=== PATIENT | male | born 1945 | race Caucasian/White ===

== ENCOUNTER → 2017-01-29 | Outpatient (CLI) | payer MEDICARE ==
[~2017-01-29] MED LIST: APIX5TAB PO; CHOL20002 PO; HYDR-3240 PO; HYDR25TA6 PO; LISI-170 PO; METF500T4 PO; METO25TA35 PO; METO25TA91 PO; MULT-658 PO; RED600CA2 PO; TAMS-11 PO; WARF10TA6 PO; WARF7.5T6 PO
== END | disposition home or self-care (01) ==
LOC: CVU 12:02
PROVIDERS: ATTEND Internal Medicine Cardiovascular Disease
DX: I87.2 Venous insufficiency (chronic) (peripheral) (principal); S81.802D Unspecified open wound, left lower leg, subsequent encounter; E11.9 Type 2 diabetes mellitus without complications; X58.XXXD Exposure to other specified factors, subsequent encounter
CPT/HCPCS: 93922; 93970

== ENCOUNTER → 2020-04-09 | Outpatient (CLI) | payer MEDICARE ==
[~2020-04-09] MED LIST changes: +ACID1TAB7 PO; +AMOX1TAB64 PO; +DIGO125T85 PO; +DOXY100T23 PO; +LOSA25TA12 PO; +METF500T17 PO; -METF500T4 PO; +WARF10TA43 PO; -WARF10TA6 PO; +WARF7.5T46 PO; -WARF7.5T6 PO
== END | disposition home or self-care (01) ==
LOC: WOUND 10:10
PROVIDERS: ATTEND Nurse Practitioner Family
DX: E11.621 Type 2 diabetes mellitus with foot ulcer (principal); L97.512 Non-pressure chronic ulcer of other part of right foot with fat layer exposed; L97.521 Non-pressure chronic ulcer of other part of left foot limited to breakdown of skin; S81.811A Laceration without foreign body, right lower leg, initial encounter; E11.40 Type 2 diabetes mellitus with diabetic neuropathy, unspecified; L84 Corns and callosities; I48.91 Unspecified atrial fibrillation; I10 Essential (primary) hypertension; Z96.642 Presence of left artificial hip joint; Z95.0 Presence of cardiac pacemaker; X58.XXXA Exposure to other specified factors, initial encounter; Y93.89 Activity, other specified; Y92.89 Other specified places as the place of occurrence of the external cause; Y99.8 Other external cause status
CPT/HCPCS: 11042; G0463

== ENCOUNTER → 2020-04-16 | Outpatient (CLI) | payer MEDICARE | END | disposition home or self-care (01) | LOC: WOUND 08:50 | PROVIDERS: ATTEND Nurse Practitioner Family | DX: E11.621 Type 2 diabetes mellitus with foot ulcer (principal); L97.512 Non-pressure chronic ulcer of other part of right foot with fat layer exposed; L97.521 Non-pressure chronic ulcer of other part of left foot limited to breakdown of skin; S81.811D Laceration without foreign body, right lower leg, subsequent encounter; E11.40 Type 2 diabetes mellitus with diabetic neuropathy, unspecified; L84 Corns and callosities; I48.91 Unspecified atrial fibrillation; I10 Essential (primary) hypertension; Z96.642 Presence of left artificial hip joint; Z95.0 Presence of cardiac pacemaker; X58.XXXD Exposure to other specified factors, subsequent encounter | CPT/HCPCS: 97597 ==

== ENCOUNTER 2020-04-23 09:04 | Outpatient (CLI) | payer MEDICARE | END 2020-04-23 23:59 | disposition home or self-care (01) | LOC: WOUND 09:04 | PROVIDERS: ATTEND Nurse Practitioner Family | DX: E11.621 Type 2 diabetes mellitus with foot ulcer (principal); L97.512 Non-pressure chronic ulcer of other part of right foot with fat layer exposed; L97.521 Non-pressure chronic ulcer of other part of left foot limited to breakdown of skin; S81.811D Laceration without foreign body, right lower leg, subsequent encounter; E11.40 Type 2 diabetes mellitus with diabetic neuropathy, unspecified; L84 Corns and callosities; I48.91 Unspecified atrial fibrillation; I10 Essential (primary) hypertension; Z96.642 Presence of left artificial hip joint; Z95.0 Presence of cardiac pacemaker; X58.XXXD Exposure to other specified factors, subsequent encounter | CPT/HCPCS: 97597 ==

== ENCOUNTER → 2020-04-30 | Outpatient (CLI) | payer MEDICARE | END | disposition home or self-care (01) | LOC: WOUND 09:08 | PROVIDERS: ATTEND Nurse Practitioner Family | DX: E11.621 Type 2 diabetes mellitus with foot ulcer (principal); L97.512 Non-pressure chronic ulcer of other part of right foot with fat layer exposed; L97.521 Non-pressure chronic ulcer of other part of left foot limited to breakdown of skin; E11.40 Type 2 diabetes mellitus with diabetic neuropathy, unspecified; L84 Corns and callosities; I48.91 Unspecified atrial fibrillation; I10 Essential (primary) hypertension; Z96.642 Presence of left artificial hip joint; Z95.0 Presence of cardiac pacemaker | CPT/HCPCS: 97597 ==

== ENCOUNTER → 2020-05-07 | Outpatient (CLI) | payer MEDICARE ==
[~2020-05-07] MED LIST changes: +HYDR-1067 PO; -HYDR-3240 PO
== END | disposition home or self-care (01) ==
LOC: WOUND 09:40
PROVIDERS: ATTEND Nurse Practitioner Family
DX: E11.621 Type 2 diabetes mellitus with foot ulcer (principal); L97.512 Non-pressure chronic ulcer of other part of right foot with fat layer exposed; L97.521 Non-pressure chronic ulcer of other part of left foot limited to breakdown of skin; E11.40 Type 2 diabetes mellitus with diabetic neuropathy, unspecified; L84 Corns and callosities; I48.91 Unspecified atrial fibrillation; I10 Essential (primary) hypertension; Z96.642 Presence of left artificial hip joint; Z95.0 Presence of cardiac pacemaker
CPT/HCPCS: 97597

== ENCOUNTER → 2020-05-14 | Outpatient (CLI) | payer MEDICARE | END | disposition home or self-care (01) | LOC: WOUND 12:52 | PROVIDERS: ATTEND Nurse Practitioner Family | DX: E11.621 Type 2 diabetes mellitus with foot ulcer (principal); L97.512 Non-pressure chronic ulcer of other part of right foot with fat layer exposed; L97.521 Non-pressure chronic ulcer of other part of left foot limited to breakdown of skin; E11.40 Type 2 diabetes mellitus with diabetic neuropathy, unspecified; L84 Corns and callosities; I48.91 Unspecified atrial fibrillation; I10 Essential (primary) hypertension; Z96.642 Presence of left artificial hip joint; Z95.0 Presence of cardiac pacemaker | CPT/HCPCS: 97597 ==

== ENCOUNTER → 2020-05-21 | Outpatient (CLI) | payer MEDICARE | END | disposition home or self-care (01) | LOC: WOUND 09:58 | PROVIDERS: ATTEND Nurse Practitioner Family | DX: E11.621 Type 2 diabetes mellitus with foot ulcer (principal); L97.512 Non-pressure chronic ulcer of other part of right foot with fat layer exposed; L97.521 Non-pressure chronic ulcer of other part of left foot limited to breakdown of skin; E11.40 Type 2 diabetes mellitus with diabetic neuropathy, unspecified; L84 Corns and callosities; I48.91 Unspecified atrial fibrillation; I10 Essential (primary) hypertension; Z96.642 Presence of left artificial hip joint; Z95.0 Presence of cardiac pacemaker | CPT/HCPCS: 11042 ==

== ENCOUNTER → 2020-06-11 | Outpatient (CLI) | payer MEDICARE | END | disposition home or self-care (01) | LOC: WOUND 09:21 | PROVIDERS: ATTEND Nurse Practitioner Family | DX: E11.621 Type 2 diabetes mellitus with foot ulcer (principal); L97.511 Non-pressure chronic ulcer of other part of right foot limited to breakdown of skin; L97.521 Non-pressure chronic ulcer of other part of left foot limited to breakdown of skin; E11.40 Type 2 diabetes mellitus with diabetic neuropathy, unspecified; L84 Corns and callosities; I48.91 Unspecified atrial fibrillation; I10 Essential (primary) hypertension; Z96.642 Presence of left artificial hip joint; Z95.0 Presence of cardiac pacemaker | CPT/HCPCS: 97597 ==

== ENCOUNTER → 2020-06-13 | Outpatient (CLI) | payer MEDICARE | END | disposition home or self-care (01) | LOC: WOUND 11:10 | PROVIDERS: ATTEND Podiatrist Foot & Ankle Surgery | DX: E11.621 Type 2 diabetes mellitus with foot ulcer (principal); L97.512 Non-pressure chronic ulcer of other part of right foot with fat layer exposed; L97.521 Non-pressure chronic ulcer of other part of left foot limited to breakdown of skin; E11.40 Type 2 diabetes mellitus with diabetic neuropathy, unspecified; L84 Corns and callosities; I48.91 Unspecified atrial fibrillation; I10 Essential (primary) hypertension; Z96.642 Presence of left artificial hip joint; Z95.0 Presence of cardiac pacemaker | CPT/HCPCS: 29445 ==

== ENCOUNTER 2020-06-18 13:03 | Outpatient (CLI) | payer MEDICARE | END 2020-06-18 23:59 | disposition home or self-care (01) | LOC: WOUND 13:03 | PROVIDERS: ATTEND Nurse Practitioner Family | DX: E11.621 Type 2 diabetes mellitus with foot ulcer (principal); L97.512 Non-pressure chronic ulcer of other part of right foot with fat layer exposed; L97.521 Non-pressure chronic ulcer of other part of left foot limited to breakdown of skin; E11.40 Type 2 diabetes mellitus with diabetic neuropathy, unspecified; L84 Corns and callosities; I48.91 Unspecified atrial fibrillation; I10 Essential (primary) hypertension; Z96.642 Presence of left artificial hip joint; Z95.0 Presence of cardiac pacemaker | CPT/HCPCS: 97597 ==

== ENCOUNTER → 2020-06-25 | Outpatient (CLI) | payer MEDICARE | END | disposition home or self-care (01) | LOC: WOUND 13:27 | PROVIDERS: ATTEND Nurse Practitioner Family | DX: E11.621 Type 2 diabetes mellitus with foot ulcer (principal); L97.521 Non-pressure chronic ulcer of other part of left foot limited to breakdown of skin; E11.40 Type 2 diabetes mellitus with diabetic neuropathy, unspecified; L84 Corns and callosities; I48.91 Unspecified atrial fibrillation; I10 Essential (primary) hypertension; Z79.84 Long term (current) use of oral hypoglycemic drugs; Z79.899 Other long term (current) drug therapy; Z95.0 Presence of cardiac pacemaker; Z96.642 Presence of left artificial hip joint | CPT/HCPCS: 97597 ==

== ENCOUNTER → 2020-07-02 | Outpatient (CLI) | payer MEDICARE | END | disposition home or self-care (01) | LOC: WOUND 09:13 | PROVIDERS: ATTEND Nurse Practitioner Family | DX: E11.621 Type 2 diabetes mellitus with foot ulcer (principal); L97.511 Non-pressure chronic ulcer of other part of right foot limited to breakdown of skin; E11.40 Type 2 diabetes mellitus with diabetic neuropathy, unspecified; I48.91 Unspecified atrial fibrillation; L84 Corns and callosities; I10 Essential (primary) hypertension; Z79.84 Long term (current) use of oral hypoglycemic drugs; Z79.899 Other long term (current) drug therapy; Z95.0 Presence of cardiac pacemaker; Z96.642 Presence of left artificial hip joint | CPT/HCPCS: 97597 ==

== ENCOUNTER → 2020-07-09 | Outpatient (CLI) | payer MEDICARE | END | disposition home or self-care (01) | LOC: WOUND 09:19 | PROVIDERS: ATTEND Nurse Practitioner Family | DX: E11.621 Type 2 diabetes mellitus with foot ulcer (principal); L97.511 Non-pressure chronic ulcer of other part of right foot limited to breakdown of skin; E11.40 Type 2 diabetes mellitus with diabetic neuropathy, unspecified; I48.91 Unspecified atrial fibrillation; L84 Corns and callosities; I10 Essential (primary) hypertension; Z79.84 Long term (current) use of oral hypoglycemic drugs; Z79.899 Other long term (current) drug therapy; Z95.0 Presence of cardiac pacemaker; Z96.642 Presence of left artificial hip joint | CPT/HCPCS: 97597 ==

== ENCOUNTER → 2020-07-16 | Outpatient (CLI) | payer MEDICARE | END | disposition home or self-care (01) | LOC: WOUND 09:59 | PROVIDERS: ATTEND Nurse Practitioner Family | DX: E11.621 Type 2 diabetes mellitus with foot ulcer (principal); L97.511 Non-pressure chronic ulcer of other part of right foot limited to breakdown of skin; E11.40 Type 2 diabetes mellitus with diabetic neuropathy, unspecified; I48.91 Unspecified atrial fibrillation; L84 Corns and callosities; I10 Essential (primary) hypertension; Z79.84 Long term (current) use of oral hypoglycemic drugs; Z79.899 Other long term (current) drug therapy; Z95.0 Presence of cardiac pacemaker; Z96.642 Presence of left artificial hip joint | CPT/HCPCS: 99214; G0463 ==

== ENCOUNTER → 2020-07-23 | Outpatient (CLI) | payer MEDICARE | END | disposition home or self-care (01) | LOC: WOUND 09:00 | PROVIDERS: ATTEND Nurse Practitioner Family | DX: E11.621 Type 2 diabetes mellitus with foot ulcer (principal); L97.511 Non-pressure chronic ulcer of other part of right foot limited to breakdown of skin; E11.40 Type 2 diabetes mellitus with diabetic neuropathy, unspecified; I48.91 Unspecified atrial fibrillation; L84 Corns and callosities; I10 Essential (primary) hypertension; Z79.84 Long term (current) use of oral hypoglycemic drugs; Z79.899 Other long term (current) drug therapy; Z95.0 Presence of cardiac pacemaker; Z96.642 Presence of left artificial hip joint | CPT/HCPCS: 97597 ==

== ENCOUNTER → 2020-08-06 | Outpatient (CLI) | payer MEDICARE ==
[~2020-08-06] MED LIST changes: -HYDR-1067 PO; +HYDR-2214 PO
== END | disposition home or self-care (01) ==
LOC: WOUND 09:31
PROVIDERS: ATTEND Nurse Practitioner Family
DX: E11.621 Type 2 diabetes mellitus with foot ulcer (principal); L97.512 Non-pressure chronic ulcer of other part of right foot with fat layer exposed; E11.40 Type 2 diabetes mellitus with diabetic neuropathy, unspecified; I48.91 Unspecified atrial fibrillation; L84 Corns and callosities; I10 Essential (primary) hypertension; Z79.84 Long term (current) use of oral hypoglycemic drugs; Z79.899 Other long term (current) drug therapy; Z95.0 Presence of cardiac pacemaker; Z96.642 Presence of left artificial hip joint
CPT/HCPCS: 11042

== ENCOUNTER → 2020-08-13 | Outpatient (CLI) | payer MEDICARE | END | disposition home or self-care (01) | LOC: WOUND 09:30 | PROVIDERS: ATTEND Nurse Practitioner Family | DX: E11.621 Type 2 diabetes mellitus with foot ulcer (principal); L97.512 Non-pressure chronic ulcer of other part of right foot with fat layer exposed; E11.40 Type 2 diabetes mellitus with diabetic neuropathy, unspecified; I48.91 Unspecified atrial fibrillation; L84 Corns and callosities; I10 Essential (primary) hypertension; Z79.84 Long term (current) use of oral hypoglycemic drugs; Z79.899 Other long term (current) drug therapy; Z95.0 Presence of cardiac pacemaker; Z96.642 Presence of left artificial hip joint | CPT/HCPCS: 97597 ==

== ENCOUNTER → 2020-08-20 | Outpatient (CLI) | payer MEDICARE | END | disposition home or self-care (01) | LOC: WOUND 10:34 | PROVIDERS: ATTEND Nurse Practitioner Family | DX: E11.621 Type 2 diabetes mellitus with foot ulcer (principal); L97.512 Non-pressure chronic ulcer of other part of right foot with fat layer exposed; E11.40 Type 2 diabetes mellitus with diabetic neuropathy, unspecified; I48.91 Unspecified atrial fibrillation; L84 Corns and callosities; I10 Essential (primary) hypertension; Z79.84 Long term (current) use of oral hypoglycemic drugs; Z79.899 Other long term (current) drug therapy; Z95.0 Presence of cardiac pacemaker; Z96.642 Presence of left artificial hip joint | CPT/HCPCS: 11042 ==

== ENCOUNTER 2020-08-27 08:48 | Outpatient (CLI) | payer MEDICARE | END 2020-08-27 23:59 | disposition home or self-care (01) | LOC: WOUND 08:48 | PROVIDERS: ATTEND Internal Medicine Infectious Disease | DX: E11.621 Type 2 diabetes mellitus with foot ulcer (principal); L97.512 Non-pressure chronic ulcer of other part of right foot with fat layer exposed; E11.40 Type 2 diabetes mellitus with diabetic neuropathy, unspecified; I48.91 Unspecified atrial fibrillation; L84 Corns and callosities; I10 Essential (primary) hypertension; Z79.84 Long term (current) use of oral hypoglycemic drugs; Z79.899 Other long term (current) drug therapy; Z95.0 Presence of cardiac pacemaker; Z96.642 Presence of left artificial hip joint | CPT/HCPCS: 11042 ==

== ENCOUNTER → 2020-09-12 | Outpatient (CLI) | payer MEDICARE | END | disposition home or self-care (01) | LOC: WOUND 09:10 | PROVIDERS: ATTEND Podiatrist Foot & Ankle Surgery | DX: E11.621 Type 2 diabetes mellitus with foot ulcer (principal); L97.512 Non-pressure chronic ulcer of other part of right foot with fat layer exposed; E11.40 Type 2 diabetes mellitus with diabetic neuropathy, unspecified; I48.91 Unspecified atrial fibrillation; L84 Corns and callosities; I10 Essential (primary) hypertension; Z79.84 Long term (current) use of oral hypoglycemic drugs; Z79.899 Other long term (current) drug therapy; Z95.0 Presence of cardiac pacemaker; Z96.642 Presence of left artificial hip joint | CPT/HCPCS: 11042 ==

== ENCOUNTER → 2020-09-19 | Outpatient (CLI) | payer MEDICARE | END | disposition home or self-care (01) | LOC: WOUND 09:45 | PROVIDERS: ATTEND Podiatrist Foot & Ankle Surgery | DX: E11.621 Type 2 diabetes mellitus with foot ulcer (principal); L97.512 Non-pressure chronic ulcer of other part of right foot with fat layer exposed; E11.40 Type 2 diabetes mellitus with diabetic neuropathy, unspecified; I48.91 Unspecified atrial fibrillation; L84 Corns and callosities; I10 Essential (primary) hypertension; Z79.84 Long term (current) use of oral hypoglycemic drugs; Z79.899 Other long term (current) drug therapy; Z95.0 Presence of cardiac pacemaker; Z96.642 Presence of left artificial hip joint | CPT/HCPCS: 97597 ==

== ENCOUNTER 2020-09-26 09:34 | Outpatient (CLI) | payer MEDICARE | END 2020-09-26 23:59 | disposition home or self-care (01) | LOC: WOUND 09:34 | PROVIDERS: ATTEND Podiatrist Foot & Ankle Surgery | DX: E11.621 Type 2 diabetes mellitus with foot ulcer (principal); L97.512 Non-pressure chronic ulcer of other part of right foot with fat layer exposed; E11.40 Type 2 diabetes mellitus with diabetic neuropathy, unspecified; L84 Corns and callosities; I10 Essential (primary) hypertension; I48.91 Unspecified atrial fibrillation; Z79.84 Long term (current) use of oral hypoglycemic drugs; Z79.899 Other long term (current) drug therapy; Z95.0 Presence of cardiac pacemaker; Z96.642 Presence of left artificial hip joint | CPT/HCPCS: 97597 ==